=== PATIENT | female | born 1965 | race Caucasian/White ===

== ENCOUNTER → 2021-05-27 | Outpatient (CLI) | payer OTHER ==
[~2021-05-27] MED LIST: DOCU-28 PO; ONDA4TAB12 PO; ONDA4TAB6 PO
== END | disposition home or self-care (01) ==
LOC: LAB SPEC 17:21
PROVIDERS: ATTEND Phlebology
DX: T81.40XA Infection following a procedure, unspecified, initial encounter (principal); X58.XXXA Exposure to other specified factors, initial encounter; Y93.89 Activity, other specified; Y92.89 Other specified places as the place of occurrence of the external cause; Y99.8 Other external cause status
CPT/HCPCS: 87070; 87075; 87077; 87186